=== PATIENT | male | born 1950 | race Asian ===

== ENCOUNTER 2016-09-17 13:26 | Emergency (ER) | payer BC, MEDICARE, OTHER ==
[~2016-09-17] VITALS: Ht 175.3 cm; Wt 74.8 kg
[~2016-09-17 13:26] MED LIST: CALC-157; MULT1TAB; OLME20TA14; ROSU10TA PO
[2016-09-17 13:31] VITALS: BP_SYST 136
--- NOTE | 2016-09-17 13:40 | NUR ---
Patient to ER bed 7 to gown for evaluation. Side rails up.Report received from Elva NAIDU.
--- NOTE | 2016-09-17 13:42 | NUR ---
Pt presents to ED c/o palpitation.Pt denies CP or SOB.EKG done. No acute distress noted.
--- NOTE | 2016-09-17 13:45 | NUR ---
ER at bedside examining patient.
--- NOTE | 2016-09-17 14:00 | NUR ---
Pt ambulated to restrrom w/o assist or SOB.
[2016-09-17 14:04] LABS: BASOPHILS % (AUTO) 0.4 % (0.0-2.0); EOSINOPHILS # (AUTO) 0.2 K/uL (0.0-0.4); EOSINOPHILS % (AUTO) 2.1 % (0.0-4.0); HEMATOCRIT 48.8 % (36-54); HEMOGLOBIN 16.1 g/dL (14.0-18.0); LYMPHOCYTES # (AUTO) 3.2 K/uL (1.0-5.5); LYMPHOCYTES % (AUTO) 33.2 % (20.5-51.5); MEAN CORPUSCULAR HEMOGLOBIN 30 pg (27-31); MEAN CORPUSCULAR HGB CONC 33 % (32-36); MEAN CORPUSCULAR VOLUME 90 fL (79.0-98.0); MONOCYTES # (AUTO) 0.9 K/uL (0.0-1.0); MONOCYTES % (AUTO) 9.8 % (1.7-9.3); NEUTROPHILS # (AUTO) 5.3 K/uL (1.8-7.7); NEUTROPHILS % (AUTO) 54.5 % (40.0-70.0); PLATELET COUNT (AUTO) 176 K/uL (130-430); RED BLOOD CELL COUNT(AUTO) 5.39 MIL/uL (4.2-6.2); RED CELL DISTRIBUTION WIDTH 12.8 % (9.0-15.0); WHITE BLOOD COUNT (AUTO) 9.6 K/uL (4.8-10.8)
[2016-09-17 14:18] LABS: ANION GAP 10 (5-15); CALCIUM 9.2 mg/dL (8.4-11.0); CHLORIDE 105 mmol/L (98-107); CREATININE 0.96 mg/dL (0.55-1.30); GLUCOSE 127 mg/dL (70-99); POTASSIUM 4.1 mmol/L (3.5-5.1); SODIUM SERUM 142 mmol/L (136-145); UREA NITROGEN, BLOOD 26 mg/dL (8-21)
[2016-09-17 14:28] LABS: GFR AFRICAN AMERICAN 101 mL/min (>90)
[2016-09-17 14:29] LABS: ALANINE AMINOTRANSFERASE 44 U/L (12-78); ALBUMIN 3.6 g/dL (3.4-4.8); ASPARTATE AMINOTRANSFERASE 23 U/L (10-37); TOTAL BILIRUBIN 0.6 mg/dL (0.0-1.0); TOTAL PROTEIN, SERUM 6.9 g/dL (6.4-8.3)
--- NOTE | 2016-09-17 14:57 | NUR ---
Guille NAQVI consulted by Dr. Gonzalez for pt followup
[2016-09-17 15:00] VITALS: BP_SYST 136
--- NOTE | 2016-09-17 15:00 | NUR ---
Patient given written and verbal discharge instructions and verbalizes understanding. ER MD discussed with patient the results and treatment provided. Patient in stable condition. ID arm band removed. IV catheter removed intact and dressing applied, no active bleeding. Patient educated on pain management and to follow up with PMD. Pain Scale 0. Opportunity for questions provided and answered.
== END 2016-09-17 15:00 | disposition home or self-care (01) ==
LOC: SED 13:26
DX: R42 Dizziness and giddiness (principal); I49.8 Other specified cardiac arrhythmias; I10 Essential (primary) hypertension
CPT/HCPCS: 36415; 80053; 84484; 85025; 93005; 99285